=== PATIENT | male | born 1980 | race Caucasian/White ===

== ENCOUNTER 2019-05-28 23:55 | Emergency (ER) | payer OTHER ==
[2019-05-29] MEDS ORDERED: Fluor-I-Strip/Ful-Flo OP ONE (00:20)
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
[2019-05-29] MEDS ORDERED: Artificial Tears 15 ML OP ONE (00:43)
[2019-05-29] MEDS ORDERED: Artificial Tears 15 ML OP SCH (00:45)
[2019-05-29 00:51] VITALS: BP 135/88; PULSE 97; O2SAT 97
== END 2019-05-29 00:55 | disposition home or self-care (01) ==
LOC: ED 23:55
DX: Z77.123 Contact with and (suspected) exposure to radon and other naturally occurring radiation (principal); H53.8 Other visual disturbances; H57.13 Ocular pain, bilateral
CPT/HCPCS: 99283; A9270-GY